=== PATIENT | female | born 1980 | race Caucasian/White ===

== ENCOUNTER 2017-01-14 07:03 | Emergency (ER) | payer OTHER ==
[2017-01-14 07:33] LABS: URINE CULTURE PL NEEDED? NO; URINE SOURCE CLEAN CATCH
[2017-01-14 07:51] LABS: CLARITY SLIGHTLY CLOUDY (CLEAR); COLOR YELLOW; GLUCOSE URINE NEGATIVE (NEGATIVE); URINE EPITHELIAL CELLS >10 /HPF (<10); URINE WBC <10 /HPF (<10)
[2017-01-14 07:52] LABS: BILIRUBIN URINE NEGATIVE (NEGATIVE); BLOOD URINE NEGATIVE (NEGATIVE); LEUKOCYTES URINE TRACE (NEGATIVE); NITRITE URINE NEGATIVE (NEGATIVE); PROTEIN URINE NEGATIVE (NEGATIVE); SP GRAVITY URINE 1.015; UROBILINOGEN URINE NORMAL
[2017-01-14 07:58] LABS: MANUAL DIFF NEEDED? NO
[2017-01-14 07:59] LABS: BASO% 0.6 % (0.0-0.8); EOS# 0.31 X1000 (0.0-0.7); EOS% 3.1 % (0.0-10.0); HEMATOCRIT 39.5 % (37.0-47.0); HEMOGLOBIN 13.1 g/dL (12.0-16.0); IMM GRAN# 0.03 X1000 (0.0-0.04); IMM GRAN% 0.3 % (0.0-0.5); LYMPH# 2.22 X1000 (1.2-3.4); LYMPH% 22.2 % (20.5-51.1); MCHC 33.2 g/dL (33-37); MCV 90.4 FL (81-99); MPV 10.2 FL (7.4-10.4); NEUT% 66.8 % (42.2-75.2); PLT 220 X1000 (130-400); RBC 4.37 XMIL (4.2-5.4)
[2017-01-14 08:43] LABS: AGAP 8; ALBUMIN 3.9 g/dL (3.5-5.0); ALKALINE PHOSPHATASE 64 U/L (32-104); AMYLASE 43 U/L (20-200); BUN 9 mg/dL (8-22); CALCIUM 8.7 mg/dL (8.8-10.2); CHLORIDE 103 mmol/L (98-107); COSMO 271; GOT 18 U/L (10-30); GPT 23 U/L (10-36); LIPASE 43 U/L (13-60); POTASSIUM 3.7 mmol/L (3.5-5.1); SODIUM 136 mmol/L (136-145); TCO2 25 mmol/L (25-35); TOTAL PROTEIN 6.8 g/dL (6.3-8.3)
--- NOTE | 2017-01-14 09:00 | PROVIDER DOCUMENTATION ---
HPI-Abdominal Pain/GI Problem - General Source: patient - History of Present Illness-ABD Nature of Presenting Problems: Pt is 36 y/o F presents to the ED with RLQ and LLQ pain. Pt states pain started this am. Pt states pain is worse in the R than L. Pt states N but no V. Pt states no menstrual cycle since October but has had one negative test. Abdominal Pain Onset Location: reports: RLQ, LLQ Pain Radiation: reports: back Quality of Pain: reports: aching, cramping Severity in ED: reports: severe Onset/Duration: reports: this morning Timing: reports: still present, intermittent Activities at Onset: reports: light activity Exposure to sick contacts?: No Modifying Factors: improves with: nothing Associated Symptoms: reports: nausea. denies: anxiety, arm pain, back/neck pain , chest pain, constipation, cough, diaphoresis, diarrhea, dizziness, EENT symptoms, fatigue, fever/chills, genitourinary problems, headaches, heartburn, joint pain, loss of appetite, malaise, muscle aches, sinus congestion/drainage, rash, seizure, shortness of breath, sensory/motor loss, pain with inspiration, swelling/mass in abdomen, syncope, vomiting, weakness, trouble walking Last BM: unsure Dark Stools Present?: reports: none noticed Rectal Bleeding: reports: none Rectal Pain: reports: none Emesis Description: reports: none Bruising or Bleeding Gums?: No Similar Symptoms Previously?: Yes Recently seen or treated by another doctor?: No <Meeta Lopez - Last Filed: 01/14/17 09:58> <Garry Gilbert - Last Filed: 01/14/17 10:08> - General Chief Complaint: Abdominal Pain Stated Complaint: ABD PAIN Time Seen by Provider: 01/14/17 08:51 Allergies/Adverse Reactions: Patient Allergies Allergy/AdvReac Type Severity Reaction Status Date / Time No Known Allergies Allergy Verified 01/14/17 07:13 Home Medications: Home Medication List Medication Instructions Recorded Confirmed Last Taken Type Acetaminophen with Codeine 1 each PO Q6H PRN PRN #14 tablet 01/14/17 Unknown Rx [Tylenol with Codeine #3 Tablet] Review of Systems - Adult - REVIEW OF SYSTEMS - ADULT Constitutional: reports: no symptoms reported Eyes: reports: no symptoms reported Ears, Nose, Mouth & Throat: reports: no symptoms reported Cardiovascular: reports: no symptoms reported Respiratory: reports: no symptoms reported Gastrointestinal: reports: abdominal pain (LLQ and RLQ), nausea. denies: diarrhea, vomiting Genitourinary: reports: no symptoms reported Musculoskeletal: reports: no symptoms reported Integumentary: reports: no symptoms reported Neurological: reports: no symptoms reported Psychiatric: reports: no symptoms reported Endocrine: reports: no symptoms reported Hematologic/Lymphatic: reports: no symptoms reported Allergic/Immunologic: reports: no symptoms reported All Other Systems: Reviewed and Negative <Phyllis Lopezomi - Last Filed: 01/14/17 09:58> Past History - Adult - PAST MEDICAL HISTORY-ADULT Review of Records: reports: Nursing Assessment Review, Medications Reviewed, Social history reviewed & non-contributory. Major Childhood Illnesses: reports: denies history Cardiovascular: reports: denies history Respiratory: reports: denies history Gastrointestinal: reports: GERD Obstetrical/Gynecological: reports: denies history Genitourinary: reports: kidney stones Musculoskeletal: reports: denies history Neurological: reports: denies history Psychiatric: reports: depression Endocrine/Immune: reports: denies history Other Conditions: reports: denies history - PRIOR SURGERIES/PROCEDURES Surgical/Procedure History: reports: reviewed, not pertinent - IMMUNIZATION STATUS Childhood Immunizations: See Nurse Assessment Flu Vaccine: See Nurse Assessment - FAMILY HISTORY Family History: reviewed, not pertinent - SOCIAL HISTORY Smoking: denies Substance Use: denies Living Situation: family <Meeta Lopez - Last Filed: 01/14/17 09:58> Physical Exam-General - PHYSICAL EXAM-ADULT Initial Vital Signs Reviewed: Yes - CONSTITUTIONAL General Appearance: appears well, alert, no apparent distress - EYES Eyes: PERRL/EOMI, pink conjunctivae, fundi clear, no AV nicking - HEAD, EARS, NOSE, MOUTH & THROAT HENMT: normocephalic/atraumatic, moist mucous membranes, normal ENT inspection, TMs normal, pharynx normal - NECK Neck: non-tender, full range of motion, supple, normal inspection - RESPIRATORY Respiratory: chest non-tender, lungs clear, normal breath sounds, no pleuratic chest pain, no respiratory distress, no accessory muscle use - CARDIOVASCULAR Cardiovascular: normal peripheral pulses, regular rate, rhythm, no edema, no gallop, no JVD, no murmur - GASTROINTESTINAL (ABDOMEN) Abdominal Exam: normal bowel sounds, non tender, soft, no organomegaly, no pulsatile mass - LYMPHATIC Lymphatic: no adenopathy - MUSCULOSKELETAL Back Exam: no vertebral tenderness, CVA tenderness (R side) Extremity: normal range of motion, non-tender, normal gait, normal inspection, no pedal edema, no calf tenderness, normal capillary refill, pelvis stable - SKIN Integumentary: normal color, normal turgor, warm/dry - NEUROLOGIC Neurologic: grossly normal - PSYCHIATRIC Psych/Mental Status: normal mood/affect, oriented x 3 <Meeta Lopez - Last Filed: 01/14/17 09:58> Progress - PLAN OF CARE/RESULTS Progress/Plan/Lab Results: Laboratory Tests 01/14/17 01/14/17 01/14/17 07:14 07:55 07:55 WBC 10.02 RBC 4.37 Hgb 13.1 Hct 39.5 MCV 90.4 MCH 30.0 MCHC 33.2 RDW Std Deviation 12.4 Plt Count 220 MPV 10.2 Immature Gran % (Auto) 0.3 Neut % (Auto) 66.8 Lymph % (Auto) 22.2 [place] % (Auto) 7.0 Eos % (Auto) 3.1 Baso % (Auto) 0.6 Immature Gran # (Auto) 0.03 Neut # (Auto) 6.70 H Lymph # (Auto) 2.22 [place] # (Auto) 0.70 H Eos # (Auto) 0.31 Baso # (Auto) 0.06 Sodium 136 Potassium 3.7 Chloride 103 Carbon Dioxide 25 Anion Gap 8 BUN 9 Creatinine 0.6 Estimated GFR/1.73 m2 > 60 BUN/Creatinine Ratio 15 Glucose 102 Calculated Osmolality 271 Calcium 8.7 L Total Bilirubin 0.50 AST 18 ALT 23 Alkaline Phosphatase 64 Total Protein 6.8 Albumin 3.9 Globulin 3.0 Albumin/Globulin Ratio 1.0 Amylase 43 Lipase 43 Urine Source CLEAN CATCH Urine Color YELLOW Urine Clarity SLIGHTLY CLOUDY A Urine pH 6.0 Ur Specific [place] 1.015 Urine Protein NEGATIVE Urine Ketones NEGATIVE Urine Blood NEGATIVE Urine Nitrite NEGATIVE Urine Bilirubin NEGATIVE Urine Urobilinogen NORMAL Urine Microscopic RBC Not Reportable Urine WBC TRACE A Urine Microscopic WBC <10 Ur Epithelial Cells >10 A Urine Glucose NEGATIVE Orders Category Date Time Status ED: Urine Bedside ORDERED Care 01/14/17 07:24 Active NPO Diet 01/14/17 07:41 Active AMYLASE [CHEM] Stat Lab 01/14/17 07:55 Completed CBC WITH ELECTRONIC DIFF [HEME] Stat Lab 01/14/17 07:55 Completed COMPREHENSIVE METABOLIC PANEL [CHEM] Stat Lab 01/14/17 07:55 Completed LIPASE [CHEM] Stat Lab 01/14/17 07:55 Completed UA [URINALYSIS PL W/POSS RFLX CULT] [URINALYSIS] Stat Lab 01/14/17 07:14 Completed Vital Signs - 24 hr 01/14/17 07:08 Temperature 98.1 F Pulse Rate 98 H Respiratory 18 Rate Blood Pressure 117/71 O2 Sat by Pulse 96 Oximetry - ULTRASOUND (By Radiology) 1 US Study: Pelvic Impression: Abnormal US Results: small 1cm L ovarian cyst; otherwise negative <Meeta Lopez - Last Filed: 01/14/17 09:58> Departure <Meeta Lopez - Last Filed: 01/14/17 09:58> - Departure Time of Disposition Order: 10:07 Certified Medical Emergency: Emergent <Garry Gilbert - Last Filed: 01/14/17 10:08> - Departure DIAGNOSIS: Right lower quadrant abdominal pain Disposition: HOME 01 Condition: Stable Additional Instructions: ED Follow Up Instructions: You have been treated by a care provider in the Emergency Department. These instructions are being provided to you so you can have an understanding of how to care for yourself upon discharge. Upon discharge from the Emergency Department, you are responsible for making arrangements for follow-up care by a physician of your choice. Take all prescribed medications as directed. Return to the Emergency Department immediately for any new or worsening symptoms. You may call the Physician Referral phone number at [phone] to obtain a list of Physicians who are taking new patients. Prescriptions: Acetaminophen with Codeine [Tylenol with Codeine #3 Tablet] 1 each PO Q6H PRN PRN #14 tablet PRN Reason: Pain Referrals: Marion Blanton MD [Primary Care Provider] - Attestation - Scribe Verification/Attestation Scribe:: Meeta Lopez Acting as Scribe for:: Garry Gilbert Scribe documention review:: This chart was documented by a scribe and accurately reflects the service the provider performed and the decisions made by the provider. <Meeta Lopez - Last Filed: 01/14/17 09:58> Physician Attestation
[2017-01-14 09:25] VITALS: BP 113/76
--- NOTE | 2017-01-14 10:12 | Diag Imaging Result Document ---
PROCEDURE NAME: US PELVIC NON-ACID OPERATOR COMPLETE - 01/14/2017 ENDOVAGINAL PELVIC ULTRASOUND: COMPARISON: None. FINDINGS: There are numerous nabothian cysts in the uterine cervix. These measure up to 1 cm. The uterus is, otherwise, normal. Endometrial stripe thickness is 6 mm. The uterus measures 7.8 x 4.1 x 3.5 cm. There is a benign-appearing left ovarian cyst measuring 1.5 cm. Otherwise, the ovaries are normal. The right ovary measures 3.1 x 2.1 x 2.2 cm. The left ovary measures 4.5 x 3.3 x 3.3 cm. No free fluid. IMPRESSION: 1. Small, benign-appearing left ovarian cyst. 2. Nabothian cysts in the uterus. 3. Otherwise no acute disease.
== END 2017-01-14 10:19 | disposition home or self-care (01) ==
LOC: P.ED 07:03
DX: R10.31 Right lower quadrant pain (principal); R10.32 Left lower quadrant pain; R11.0 Nausea; M54.9 Dorsalgia, unspecified
CPT/HCPCS: 36415; 76856; 80053; 81001; 82150; 83690; 85025